=== PATIENT | male | born 1985 | race American Indian/Alaskan Native ===

== ENCOUNTER 2018-11-06 22:12 | Emergency (ER) | payer SELFPAY ==
--- NOTE | 2018-11-06 23:50 | XRay Report ---
LUMBAR SPINE 2 VIEWS INDICATION / CLINICAL INFORMATION: MAIN: fall Fall this evening. Slipped and fell on dog food at [facility]. Pain to right wrist and lower back. No obvious deformities. +radial pulse and grit blaster. Nonlabored. . COMPARISON: None available. FINDINGS: VERTEBRAE: No acute fracture. No significant malalignment. DISC SPACES / FACET JOINTS:No significant abnormality. PARASPINAL SOFT TISSUES:No significant abnormality. ADDITIONAL FINDINGS: None. Signer Name: Mary Alice Richter MD Signed: 11/06/2018 11:45 PM Workstation Name: [id number]
--- NOTE | 2018-11-06 23:50 | XRay Report ---
RIGHT WRIST 2 VIEW(S) INDICATION / CLINICAL INFORMATION: MAIN: fall Fall this evening. Slipped and fell on dog food at [facility]. Pain to right wrist and lower back. No obvious deformities. +radial pulse and charcoal kiln burner. Nonlabored. COMPARISON: None available. FINDINGS: BONES / JOINT(S): No acute fracture or subluxation. No significant arthritis. SOFT TISSUES: No significant abnormality. ADDITIONAL FINDINGS: None. Signer Name: Mary Alice Richter MD Signed: 11/06/2018 11:46 PM Workstation Name: [id number]
[2018-11-07] MEDS ORDERED: ACETAMINOPHEN 500 MG TAB PO ONE (00:44)
[2018-11-07] MEDS ORDERED: IBUPROFEN 600 MG TAB PO ONE (00:44)
--- NOTE | 2018-11-07 01:12 | Emergency Department Report ---
ED Fall HPI - General Chief Complaint: Fall Stated Complaint: FALL RT WRIST/BACK PAIN Source: patient Mode of arrival: Ambulatory - History of Present Illness Initial Comments: Patient is a 33-year-old -[place] male with no past medical history presents to the ED with complaint of acute onset persistent severe right wrist pain and low back pain after he slipped on a wet floor at a grocery store about 3 hours ago and fell down landing on the right wrist and low back. Patient denies head or neck injury, syncope, numbness and tingling of the right hand or wrist, dizziness, neck pain, numbness and tingling of lower extremities bilaterally, urinary or bowel incontinence, saddle paresthesia or loss of consciousness. 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 denies: headache, neck pain, numbness, weakness, chest paint, shortness of breath, abdominal pain, hematuria, unable to walk, lightheaded, confusion, other - Related Data Previous Rx's Medication Instructions Recorded Last Taken Type Cyclobenzaprine [Flexeril] 10 mg PO Q8H PRN #15 tablet 11/07/18 Unknown Rx Ibuprofen [Motrin] 800 mg PO Q8HR PRN #20 tablet 11/07/18 Unknown Rx Allergies Allergy/AdvReac Type Severity Reaction Status Date / Time No Known Allergies Allergy Verified 11/06/18 22:21 ED Review of Systems ROS: Stated complaint: FALL RT WRIST/BACK PAIN Other details as noted in HPI Constitutional: denies: chills, fever Eyes: denies: eye pain, eye discharge, vision change ENT: denies: ear pain, throat pain Respiratory: denies: cough, shortness of breath, wheezing Cardiovascular: denies: chest pain, palpitations Endocrine: no symptoms reported Gastrointestinal: denies: abdominal pain, nausea, diarrhea Genitourinary: denies: urgency, dysuria Musculoskeletal: back pain (LOWER), arthralgia (Right wrist), other (right wrist pain). denies: joint swelling Skin: denies: rash, lesions Neurological: denies: headache, weakness, paresthesias Psychiatric: denies: anxiety, depression Hematological/Lymphatic: denies: easy bleeding, easy bruising ED Past Medical Hx - Past Medical History Previous Medical History?: No - Surgical History Past Surgical History?: No - Social History Smoking Status: Current Every Day Smoker Substance Use Type: None - Medications Home Medications: Home Medications Medication Instructions Recorded Confirmed Last Taken Type Cyclobenzaprine [Flexeril] 10 mg PO Q8H PRN #15 tablet 11/07/18 Unknown Rx Ibuprofen [Motrin] 800 mg PO Q8HR PRN #20 tablet 11/07/18 Unknown Rx ED Physical Exam - General Limitations: No Limitations General appearance: alert, in no apparent distress - Head Head exam: Present: atraumatic, normocephalic, normal inspection - Eye Eye exam: Present: normal appearance, PERRL Pupils: Present: normal accommodation - ENT ENT exam: Present: normal exam, normal orophraynx, mucous membranes moist, TM's normal bilaterally, normal external ear exam - Neck Neck exam: Present: normal inspection, full ROM. Absent: tenderness, meningismus, lymphadenopathy, thyromegaly - Respiratory Respiratory exam: Present: normal lung sounds bilaterally. Absent: respiratory distress, wheezes, rhonchi, chest wall tenderness, accessory muscle use, decreased breath sounds - Cardiovascular Cardiovascular Exam: Present: normal rhythm, tachycardia, normal heart sounds. Absent: systolic murmur, diastolic murmur, rubs, gallop - GI/Abdominal GI/Abdominal exam: Present: soft, normal bowel sounds. Absent: tenderness, guarding, rebound, hyperactive bowel sounds, hypoactive bowel sounds, organomegaly - Rectal Rectal exam: Present: deferred - Extremities Exam Extremities exam: Present: normal inspection, full ROM, tenderness (palpable right wrist tenderness), normal capillary refill. Absent: joint swelling, calf tenderness - Back Exam Back exam: Present: normal inspection, full ROM, tenderness (palpable lumbosacral paraspinal musculoskeletal tenderness), muscle spasm, paraspinal tenderness. Absent: CVA tenderness (L) - Neurological Exam Neurological exam: Present: alert, oriented X3, CN II-XII intact, normal gait, reflexes normal - Psychiatric Psychiatric exam: Present: normal affect, normal mood - Skin Skin exam: Present: warm, dry, intact, normal color. Absent: rash ED Course Vital Signs 11/06/18 11/06/18 22:16 22:18 Temperature 98.5 F 98.5 F Pulse Rate 103 H 103 H Respiratory 18 18 Rate Blood Pressure 129/80 129/80 O2 Sat by Pulse 97 97 Oximetry - Reevaluation(s) Reevaluation #1: 11/07/18 01:18 This is a 33-year-old male who presented to the ED with complaint of low back pain and right wrist pain after he slipped and fell the floor for 3 hours ago. Patient is alert and oriented 3 and is in no acute distress. Right wrist x- ray shows no acute fractures or subluxations. The L-spine x-ray shows no acute fractures or subluxations. Patient was treated for pain in the ED and on reevaluation, patient's pain is well-controlled. The right wrist was splinted with a Velcro splint and the patient discharged home on pain medications and muscle relaxants, and advised to follow-up with his primary care physician in 7- 10 days for reevaluation or return to the ED immediately if symptoms get worse. ED Medical Decision Making - Radiology Data Right wrist x-ray shows no acute fractures or subluxations. The L-spine x-ray shows no acute fractures or subluxations. - Medical Decision Making This is a 33-year-old male who presented to the ED with complaint of low back pain and right wrist pain after he slipped and fell the floor for 3 hours ago. Patient is alert and oriented 3 and is in no acute distress. Right wrist x- ray shows no acute fractures or subluxations. The L-spine x-ray shows no acute fractures or subluxations. Patient was treated for pain in the ED and on reevaluation, patient's pain is well-controlled. The right wrist was splinted with a Velcro splint and the patient discharged home on pain medications and muscle relaxants, and advised to follow-up with his primary care physician in 7- 10 days for reevaluation or return to the ED immediately if symptoms get worse. - Differential Diagnosis Muscle strain of wrist; Wrist fracture; Muscle spasm of back Critical care attestation.: If time is entered above; I have spent that time in minutes in the direct care of this critically ill patient, excluding procedure time. ED Disposition Clinical Impression: Spasm of muscle of lower back Sprain of right wrist Qualifiers: Encounter type: initial encounter Qualified Code(s): S63.501A - Unspecified sprain of right wrist, initial encounter Disposition: TO HOME OR SELFCARE Is pt being admited?: No Does the pt Need Aspirin: No Condition: Stable Instructions: Spasmodic Torticollis (ED), Acute Low Back Pain (ED), Wrist Sprain (ED) Additional Instructions: Take medication with food, drink plenty of fluids and follow-up with your [facility] physician in 5-7 days for reevaluation. Return to the ED immediately if symptoms get worse. Prescriptions: Cyclobenzaprine [Flexeril] 10 mg PO Q8H PRN #15 tablet PRN Reason: Muscle Spasm Ibuprofen [Motrin] 800 mg PO Q8HR PRN #20 tablet PRN Reason: Pain , Severe (7-10) Referrals: [facility] [Outside] - 3-5 Days Time of Disposition: 01:09 Print Language: SAMOAN
[2018-11-07 01:21] VITALS: BP 136/84
== END 2018-11-08 01:20 | disposition home or self-care (01) ==
LOC: ED 22:12
DX: S63.501A Unspecified sprain of right wrist, initial encounter (principal); R25.2 Cramp and spasm; F17.200 Nicotine dependence, unspecified, uncomplicated; W01.0XXA Fall on same level from slipping, tripping and stumbling without subsequent striking against object, initial encounter; Y93.89 Activity, other specified; Y92.89 Other specified places as the place of occurrence of the external cause; Y99.8 Other external cause status
CPT/HCPCS: 72100